=== PATIENT | male | born 2000 | race African-American/Black ===

== ENCOUNTER 2025-03-29 22:09 | Emergency (ER) | payer SELFPAY | END 2025-03-29 22:42 | disposition home or self-care (01) | LOC: ERS 22:09 | DX: R11.0 Nausea (principal) | CPT/HCPCS: 99283; Q0162 ==

== ENCOUNTER 2025-04-05 06:50 | Emergency (ER) | payer SELFPAY ==
[2025-04-05] MEDS ORDERED: Albuterol 200 PUFF (6.7GM INHALER) ONE (08:08)
== END 2025-04-05 08:23 | disposition home or self-care (01) ==
LOC: ERS 06:50
DX: R06.4 Hyperventilation (principal)